=== PATIENT | male | born 1945 | race Caucasian/White ===

== ENCOUNTER 2021-05-07 08:42 | Inpatient (IN) | payer MEDICARE, MEDICAID ==
[2021-05-07] VITALS (43 sets, daily range): BP systolic 67–152; BP diastolic 33–101
[~2021-05-07] VITALS: Ht 167.6 cm; Wt 7.5 kg
[2021-05-07] MEDS ORDERED: ONDANSETRON HCL 4MG/2ML INJ IV PRN (09:30)
[2021-05-07] MEDS ORDERED: ACETAMINOPHEN 325MG TABLET PO PRN (09:30)
[2021-05-07 09:41] LABS: BASOPHILS % 0.3 % (0.0-2.0); EOSINOPHILS % 2.1 % (0.0-5.0); HEMATOCRIT. 42.8 % (42.0-52.0); HEMOGLOBIN. 14.6 g/dL (14.0-18.0); MEAN CORPUSCULAR HEMOGLOBIN 31.9 pg (28.0-32.0); MEAN CORPUSCULAR VOLUME 93.5 fL (80.0-94.0); MONOCYTES % 7.3 % (2.0-8.0); NEUTROPHILS % 72.3 % (40.0-76.0); RED BLOOD CELL COUNT 4.58 mill/uL (4.7-6.1); RED CELL DISTRIBUTION WIDTH 13.1 % (11.6-14.6)
[2021-05-07 09:45] LABS: CHLORIDE 110 mEq/L (98-107)
[2021-05-07 10:12] LABS: MEAN PLATELET VOLUME 11.7 fl (7.4-10.4); PLATELET 135 x1000/uL (130-400)
[2021-05-07] MEDS ORDERED: LIDOCAINE HCL 1% 10 MG/ML 10ML VIAL ONE ×3 (10:36→12:11)
[2021-05-07] MEDS ORDERED: IODIXANOL 320MG/ML 100 ML BOTTLE IV ONE (10:36)
[2021-05-07] MEDS ORDERED: VERAPAMIL HCL 2.5 MG/1 ML 2ML VIAL IV ONE (10:36)
[2021-05-07] MEDS ORDERED: MIDAZOLAM HCL 2 MG/2 ML VIAL ONE ×3 (10:55→13:13)
[2021-05-07] MEDS ORDERED: FENTANYL CITRATE/PF 50MCG/ML 2ML VIAL ONE (10:55)
[2021-05-07] MEDS ORDERED: HEPARIN 1000 UNITS/ML 10ML ONE (11:02)
[2021-05-07] MEDS ORDERED: IOHEXOL-300 100 ML BOTTLE ONE (11:55)
[2021-05-07] MEDS ORDERED: HYDRALAZINE 20MG/ML VIAL ONE (12:17)
[2021-05-07] MEDS ORDERED: NITROGLYCERIN 50MG PREMIX 250 ML IV ONE (12:20)
[2021-05-07] MEDS ORDERED: FUROSEMIDE 40MG/4ML VIAL ONE (12:26)
[2021-05-07] MEDS ORDERED: FENTANYL CITRATE/PF 2,500 MCG in SODIUM CHLORIDE 0.9% 200 ML IV PRN ×2 (12:45→13:00)
[2021-05-07] MEDS ORDERED: MIDAZOLAM HCL 100 MG in SODIUM CHLORIDE 0.9% 80 ML IV PRN ×2 (12:45→13:00)
[2021-05-07] MEDS ORDERED: IPRATROPIUM/ALBUTEROL 0.5-3(2.5)MG/3ML NEB HHN PRN (12:45)
[2021-05-07] MEDS ORDERED: ATROPINE SULFATE 1MG/10ML SYR IV PRN (13:15)
[2021-05-07] MEDS ORDERED: HEPARIN 5000 UNITS/ML VIAL IV SCH ×2 (14:00→16:30)
[2021-05-07] MEDS ORDERED: HEPARIN 5000 UNITS/ML VIAL IV PRN ×2 (14:00)
[2021-05-07 14:40] LABS: BG BASE EXCESS -6.8 mmol/L (-2.0-2.0); BG CARBOXYHEMOGLOBIN 0.4 % (0.5-1.5); BG DEOXYHEMOGLOBIN 2.4 % (0.0-5.0); BG FRACTION INSPIRED OXYGEN 100; BG HCO3 ACT 20.1 mmol/L (22.0-26.0); BG METHEMOGLOBIN 0.6 % (0.0-1.5); BG OXYGEN SATURATION 97.6 % (92.0-98.5); BG OXYHEMOGLOBIN 96.6 % (94.0-97.0); BG PCO2 44.9 mmHg (35.0-45.0); BG PH 7.268 (7.350-7.450); BG PO2 111.8 mmHg (75.0-100.0); BG SAMPLE SITE LEFT BRACHIAL; BG TOTAL HEMOGLOBIN 15.8 g/dL (12.0-18.0); BG VENT MODE VENT - AC
[2021-05-07] MEDS ORDERED: SODIUM BICARBONATE 8.4% 1 MEQ/ML 50ML SYR IV NR (15:00)
[2021-05-07] MEDS ORDERED: SODIUM BICARBONATE 8.4% 1 MEQ/ML 50ML SYR IV ONE (15:03)
[2021-05-07] MEDS ORDERED: NOREPINEPHRINE 32 MG in DEXT 5% WATER 218 ML IV PRN (15:30)
[2021-05-07] MEDS ORDERED: NITROGLYCERIN 50MG PREMIX 250 ML IV PRN (16:15)
[2021-05-07 16:27] LABS: BG BASE EXCESS -3.4 mmol/L (-2.0-2.0); BG CARBOXYHEMOGLOBIN 0.3 % (0.5-1.5); BG DEOXYHEMOGLOBIN 1.9 % (0.0-5.0); BG FRACTION INSPIRED OXYGEN 70; BG HCO3 ACT 20.9 mmol/L (22.0-26.0); BG METHEMOGLOBIN 0.3 % (0.0-1.5); BG OXYGEN SATURATION 98.1 % (92.0-98.5); BG OXYHEMOGLOBIN 97.5 % (94.0-97.0); BG PCO2 35.4 mmHg (35.0-45.0); BG PH 7.389 (7.350-7.450); BG PO2 112.6 mmHg (75.0-100.0); BG TOTAL HEMOGLOBIN 14.6 g/dL (12.0-18.0); BG VENT MODE VENT - AC
[2021-05-07 17:10] LABS: INR 1.1
[2021-05-07] MEDS ORDERED: NITROGLYCERIN 50MG PREMIX 250 ML IV SCH (17:15)
[2021-05-07] MEDS ORDERED: DEXT 5%/0.45% NACL 1000ML 1,000 ML IV SCH (17:30)
[2021-05-07] MEDS: HEPARIN 25,000 UNITS PREMIX 250 ML IV PRN (17:45)
[2021-05-07] MEDS: FUROSEMIDE 40MG/4ML VIAL IVP SCH (19:39)
[2021-05-07 20:09] LABS: CLARITY URINE CLEAR (CLEAR); COLOR URINE YELLOW (YELLOW); KETONES URINE NEGATIVE (NEGATIVE); LEUKOCYTE ESTERASE URINE TRACE (NEGATIVE); NITRITE URINE POSITIVE (NEGATIVE); OCCULT BLOOD URINE 1+ (NEGATIVE); PROTEIN URINE NEGATIVE (NEGATIVE); SPECIFIC GRAVITY URINE 1.023 (1.005-1.030); UROBILINOGEN URINE 0.2 E.U./dL (0.2-1.0)
[2021-05-07] MEDS: IPRATROPIUM/ALBUTEROL 0.5-3(2.5)MG/3ML NEB HHN SCH (21:02)
[2021-05-08] VITALS (99 sets, daily range): BP systolic 71–168; BP diastolic 31–117
[2021-05-08] MEDS: IPRATROPIUM/ALBUTEROL 0.5-3(2.5)MG/3ML NEB HHN SCH ×4 (04:41→18:00)
[2021-05-08 06:57] LABS: BASOPHILS % 0.4 % (0.0-2.0); EOSINOPHILS % 0.8 % (0.0-5.0); HEMATOCRIT. 39.7 % (42.0-52.0); HEMOGLOBIN. 13.4 g/dL (14.0-18.0); LYMPHOCYTES % 15.5 % (20.0-50.0); MEAN CORPUSCULAR HEMOGLOBIN 31.4 pg (28.0-32.0); MEAN CORPUSCULAR VOLUME 93.2 fL (80.0-94.0); MEAN PLATELET VOLUME 11.8 fl (7.4-10.4); MONOCYTES % 7.5 % (2.0-8.0); NEUTROPHILS % 75.8 % (40.0-76.0); PLATELET 99 x1000/uL (130-400); RED BLOOD CELL COUNT 4.26 mill/uL (4.7-6.1); RED CELL DISTRIBUTION WIDTH 13.5 % (11.6-14.6)
[2021-05-08 07:22] LABS: PHOSPHORUS 3.8 mg/dL (2.5-4.9)
[2021-05-08] MEDS ORDERED: LIDOCAINE HCL 1% 10 MG/ML 10ML VIAL ONE (07:39)
[2021-05-08] MEDS: PANTOPRAZOLE SODIUM 40 MG/VIAL IV SCH (08:24)
[2021-05-08] MEDS: FUROSEMIDE 40MG/4ML VIAL IVP SCH (08:24)
[2021-05-08 08:32] LABS: BG CARBOXYHEMOGLOBIN 0.3 % (0.5-1.5); BG DEOXYHEMOGLOBIN 0.9 % (0.0-5.0); BG FRACTION INSPIRED OXYGEN 60; BG HCO3 ACT 21.8 mmol/L (22.0-26.0); BG METHEMOGLOBIN 0.4 % (0.0-1.5); BG OXYGEN SATURATION 99.1 % (92.0-98.5); BG OXYHEMOGLOBIN 98.4 % (94.0-97.0); BG PCO2 42.5 mmHg (35.0-45.0); BG PH 7.328 (7.350-7.450); BG PO2 185.8 mmHg (75.0-100.0); BG SAMPLE SITE LEFT RADIAL; BG TOTAL HEMOGLOBIN 14.2 g/dL (12.0-18.0); BG TOTAL RESPIRATORY RATE 20 b/min; BG VENT MODE VENT - AC
[2021-05-08] MEDS: ASPIRIN 81MG TABLET PO SCH (09:00)
[2021-05-08] MEDS ORDERED: CEFTRIAXONE 1 G PREMIX 50 ML IV SCH (10:00)
[2021-05-08 10:35] LABS: CREATINE KINASE 297 IU/L (39-308)
[2021-05-08] MEDS: SODIUM BICARBONATE 50 MEQ in DEXTROSE 5% WATER 1,000 ML IV SCH ×2 (10:37→22:19)
[2021-05-08] MEDS: CEFTRIAXONE 1,000 MG in DEXTROSE 5% WATER 50 ML IV SCH (10:37)
[2021-05-08 12:44] LABS: BG BASE EXCESS -4.1 mmol/L (-2.0-2.0); BG CARBOXYHEMOGLOBIN 0.4 % (0.5-1.5); BG DEOXYHEMOGLOBIN 3.5 % (0.0-5.0); BG METHEMOGLOBIN 0.2 % (0.0-1.5); BG OXYGEN SATURATION 96.5 % (92.0-98.5); BG OXYHEMOGLOBIN 95.9 % (94.0-97.0); BG PH 7.388 (7.350-7.450); BG PO2 85.9 mmHg (75.0-100.0); BG SAMPLE SITE RIGHT BRACHIAL; BG TOTAL HEMOGLOBIN 14.4 g/dL (12.0-18.0); BG VENT MODE VENT - CPAP
[2021-05-08] MEDS ORDERED: NITROGLYCERIN 50MG PREMIX 250 ML IV PRN (14:15)
[2021-05-08 15:05] LABS: BG BASE EXCESS -4.7 mmol/L (-2.0-2.0); BG CARBOXYHEMOGLOBIN 0.7 % (0.5-1.5); BG DEOXYHEMOGLOBIN 3.2 % (0.0-5.0); BG FRACTION INSPIRED OXYGEN 40; BG METHEMOGLOBIN 0.5 % (0.0-1.5); BG OXYGEN SATURATION 96.8 % (92.0-98.5); BG OXYHEMOGLOBIN 95.6 % (94.0-97.0); BG PCO2 35.8 mmHg (35.0-45.0); BG PH 7.364 (7.350-7.450); BG PO2 88.5 mmHg (75.0-100.0); BG SAMPLE SITE LEFT BRACHIAL; BG TOTAL HEMOGLOBIN 14.3 g/dL (12.0-18.0); BG VENT MODE COOL AEROSOL
[2021-05-08] MEDS: NICARDIPINE 50 MG in SODIUM CHLORIDE 0.9% 230 ML IV PRN (15:16)
[2021-05-08] MEDS ORDERED: SODIUM BICARBONATE 8.4% 1 MEQ/ML 50ML SYR IV NR (15:45)
[2021-05-08] MEDS: HEPARIN 25,000 UNITS PREMIX 250 ML IV PRN (18:24)
[2021-05-09] VITALS (106 sets, daily range): BP systolic 83–142; BP diastolic 33–125
[2021-05-09] MEDS: IPRATROPIUM/ALBUTEROL 0.5-3(2.5)MG/3ML NEB HHN SCH ×5 (00:27→20:48)
[2021-05-09] MEDS: NICARDIPINE 50 MG in SODIUM CHLORIDE 0.9% 230 ML IV PRN ×3 (00:29→19:53)
[2021-05-09 05:50] LABS: BASOPHILS % 0.2 % (0.0-2.0); EOSINOPHILS % 0.7 % (0.0-5.0); HEMATOCRIT. 39.7 % (42.0-52.0); HEMOGLOBIN. 13.5 g/dL (14.0-18.0); LYMPHOCYTES % 9.9 % (20.0-50.0); MEAN CORPUSCULAR HEMOGLOBIN 31.4 pg (28.0-32.0); MEAN CORPUSCULAR VOLUME 92.2 fL (80.0-94.0); MEAN PLATELET VOLUME 10.9 fl (7.4-10.4); MONOCYTES % 8.5 % (2.0-8.0); NEUTROPHILS % 80.7 % (40.0-76.0); PLATELET 64 x1000/uL (130-400); RED BLOOD CELL COUNT 4.31 mill/uL (4.7-6.1); RED CELL DISTRIBUTION WIDTH 13.1 % (11.6-14.6)
[2021-05-09] MEDS: SODIUM BICARBONATE 50 MEQ in DEXTROSE 5% WATER 1,000 ML IV SCH (07:18)
[2021-05-09] MEDS ORDERED: KCL 20MEQ/100ML PREMIX 100 ML IV ONE (08:30)
[2021-05-09] MEDS: PANTOPRAZOLE SODIUM 40 MG/VIAL IV SCH (08:37)
[2021-05-09] MEDS: FUROSEMIDE 40MG/4ML VIAL IVP SCH (08:37)
[2021-05-09] MEDS: DEXT 5%/0.9% NACL 1,000 ML IV SCH (08:38)
[2021-05-09] MEDS: ASPIRIN 81MG TABLET PO SCH (09:25)
[2021-05-09] MEDS ORDERED: GUAIFENESIN 600MG ER TABLET PO NR (09:30)
[2021-05-09] MEDS: CEFTRIAXONE 1,000 MG in DEXTROSE 5% WATER 50 ML IV SCH (10:06)
[2021-05-09 11:19] LABS: PHOSPHORUS 2.8 mg/dL (2.5-4.9)
[2021-05-09] MEDS ORDERED: ACETAMINOPHEN 325MG TABLET PO PRN (12:15)
[2021-05-09] MEDS ORDERED: SODIUM CHLORIDE 0.9% INJ 3ML FLUSH IVF SCH (14:00)
[2021-05-09 16:41] LABS: CLARITY URINE CLEAR (CLEAR); COLOR URINE YELLOW (YELLOW); KETONES URINE NEGATIVE (NEGATIVE); LEUKOCYTE ESTERASE URINE 2+ (NEGATIVE); NITRITE URINE NEGATIVE (NEGATIVE); OCCULT BLOOD URINE 1+ (NEGATIVE); PROTEIN URINE TRACE (NEGATIVE)
[2021-05-09] MEDS: ACETYLCYSTEINE 100MG/ML 10% VIAL 4ML INH SCH (17:17)
[2021-05-09] MEDS: ALLOPURINOL 300 MG TABLET PO SCH (20:07)
[2021-05-09] MEDS ORDERED: ASCORBIC ACID 500 MG TABLET PO SCH (21:00)
[2021-05-09] MEDS ORDERED: CHLORHEXIDINE GLUCONATE 4% EXTERNAL USE TOP SCH (21:00)
[2021-05-09] MEDS ORDERED: BISACODYL 10MG SUPP PR PRN (21:00)
[2021-05-09] MEDS ORDERED: DOCUSATE SODIUM 100MG CAPSULE PO SCH (21:00)
[2021-05-09] MEDS: HEPARIN 25,000 UNITS PREMIX 250 ML IV PRN (21:05)
[2021-05-09] MEDS: GUAIFENESIN 600MG ER TABLET PO SCH (21:06)
[2021-05-10] VITALS (61 sets, daily range): BP systolic 68–140; BP diastolic 20–101
[2021-05-10] MEDS: IPRATROPIUM/ALBUTEROL 0.5-3(2.5)MG/3ML NEB HHN SCH ×4 (00:56→20:28)
[2021-05-10] MEDS: ACETYLCYSTEINE 100MG/ML 10% VIAL 4ML INH SCH ×2 (00:56→16:26)
[2021-05-10] MEDS: NICARDIPINE 50 MG in SODIUM CHLORIDE 0.9% 230 ML IV PRN (02:05)
[2021-05-10 04:22] LABS: HEMATOCRIT. 37.1 % (42.0-52.0); HEMOGLOBIN. 12.7 g/dL (14.0-18.0); MEAN CORPUSCULAR HEMOGLOBIN 31.3 pg (28.0-32.0); MEAN PLATELET VOLUME 11.1 fl (7.4-10.4); PLATELET 62 x1000/uL (130-400); RED BLOOD CELL COUNT 4.07 mill/uL (4.7-6.1); RED CELL DISTRIBUTION WIDTH 12.8 % (11.6-14.6)
[2021-05-10 04:30] LABS: CHLORIDE 105 mEq/L (98-107)
[2021-05-10] MEDS: DEXT 5%/0.9% NACL 1,000 ML IV SCH (04:37)
[2021-05-10] MEDS: ALLOPURINOL 300 MG TABLET PO SCH (04:37)
[2021-05-10 04:40] LABS: PHOSPHORUS 2.8 mg/dL (2.5-4.9)
[2021-05-10] MEDS ORDERED: MAGNESIUM 2 G PREMIX 50 ML IV ONE (05:15)
[2021-05-10] MEDS: CHLORHEXIDINE GLUCONATE 4% EXTERNAL USE TOP SCH (05:20)
[2021-05-10] MEDS ORDERED: MAGNESIUM SULFATE 3 GM in DEXTROSE 5% WATER 100 ML IV NR (05:30)
[2021-05-10] MEDS ORDERED: THROMBIN (BOVINE) 5000 UNITS/VIAL TOP ONE (05:35)
[2021-05-10] MEDS ORDERED: POLYMYXIN B SULFATE 500000 UNITS/VIAL ONE (05:35)
[2021-05-10] MEDS ORDERED: SKIN ADHESIVE 0.7 GM EA TOP ONE (05:35)
[2021-05-10] MEDS ORDERED: HEPARIN 1000 UNITS/ML 10ML ONE ×3 (05:41→09:32)
[2021-05-10] MEDS ORDERED: DOPAMINE 400MG/250ML PREMIX 0 ML IV ONE (05:51)
[2021-05-10] MEDS ORDERED: DEL NIDO ELECTROLYTE-S(PH 7.4) 1,000 ML IV PRN ×2 (06:00)
[2021-05-10] MEDS ORDERED: PAPAVERINE HCL 180MG in SODIUM CHLORIDE 0.9% 24ML IV PRN (06:00)
[2021-05-10] MEDS ORDERED: NOREPINEPHRINE 8 MG in DEXT 5% WATER 242 ML IV PRN ×2 (06:00→15:45)
[2021-05-10] MEDS ORDERED: CEFAZOLIN 2,000 MG in DEXT 5% WATER 100 ML IV PRN (06:00)
[2021-05-10] MEDS ORDERED: DOBUTAMINE 250 MG PREMIX 250 ML IV PRN (06:00)
[2021-05-10] MEDS ORDERED: EPINEPHRINE 5 MG in DEXT 5% WATER 245 ML IV PRN ×2 (06:00→17:00)
[2021-05-10] MEDS ORDERED: INSULIN REGULAR (DRIP) 100 UNITS in SODIUM CHLORIDE 0.9% 99 ML IV PRN (06:00)
[2021-05-10] MEDS ORDERED: DOPAMINE 400MG/250ML PREMIX 250 ML IV PRN (06:00)
[2021-05-10] MEDS ORDERED: AMINOCAPROIC ACID 5,000 MG in SODIUM CHLORIDE 0.9% 230 ML IV PRN (06:00)
[2021-05-10] MEDS ORDERED: NICARDIPINE 40 MG/200 ML PREMIX 200 ML IV PRN (06:00)
[2021-05-10] MEDS ORDERED: ROCURONIUM BROMIDE 10MG/ML VIAL 5ML IV ONE ×2 (07:13→09:35)
[2021-05-10 07:16] LABS: PLATELET ESTIMATE DECREASED
[2021-05-10] MEDS ORDERED: CALCIUM CHLORIDE 1GM/10ML SYR IV ONE ×5 (07:49→13:29)
[2021-05-10] MEDS ORDERED: AMINOCAPROIC ACID 250 MG/ML 20ML VIAL ONE (07:49)
[2021-05-10] MEDS ORDERED: SODIUM BICARBONATE 8.4% 1 MEQ/ML 50ML SYR IV ONE ×5 (08:01→15:47)
[2021-05-10] MEDS ORDERED: ALBUMIN HUMAN 25GM/100ML (25%) IV ONE ×2 (08:01→15:05)
[2021-05-10] MEDS ORDERED: POTASSIUM CHLORIDE 40MEQ/20ML INJ IV ONE (08:01)
[2021-05-10] MEDS ORDERED: PHENYLEPHRINE HCL 10 MG/ML 1ML (IV VIAL) IV ONE (08:01)
[2021-05-10] MEDS ORDERED: MANNITOL 20% (20GM/100ML) BAG 500ML PREMIX IV ONE (08:01)
[2021-05-10] MEDS ORDERED: HEPARIN 10,000 UNITS/ML VIAL ONE (08:01)
[2021-05-10] MEDS ORDERED: MAGNESIUM SULFATE 5GM/10ML VIAL IV ONE (08:01)
[2021-05-10] MEDS ORDERED: HYDROMORPHONE HCL/PF 2MG/ML (OR) ONE (08:13)
[2021-05-10] MEDS ORDERED: BUPIVACAINE HCL/PF 0.5% (5MG/ML) 10ML ONE (08:14)
[2021-05-10] MEDS ORDERED: FUROSEMIDE 100MG/10ML VIAL ONE (08:17)
[2021-05-10] MEDS: FUROSEMIDE 40MG/4ML VIAL IVP SCH (09:00)
[2021-05-10] MEDS: GUAIFENESIN 600MG ER TABLET PO SCH ×2 (09:00→21:00)
[2021-05-10] MEDS: ASPIRIN 81MG TABLET PO SCH (09:00)
[2021-05-10] MEDS: PANTOPRAZOLE SODIUM 40 MG/VIAL IV SCH (09:00)
[2021-05-10] MEDS ORDERED: AMIODARONE HCL 50MG/ML 3ML VIAL IV ONE (09:48)
[2021-05-10] MEDS ORDERED: VASOPRESSIN 20 UNIT/ML 1ML ONE (09:57)
[2021-05-10] MEDS ORDERED: AMIODARONE HCL 900 MG in DEXT 5% WATER 500 ML IV SCH (10:00)
[2021-05-10] MEDS: CEFTRIAXONE 1,000 MG in DEXTROSE 5% WATER 50 ML IV SCH (10:09)
[2021-05-10] MEDS ORDERED: PROTAMINE SULFATE 10MG/ML VIAL 25ML IV ONE (12:05)
[2021-05-10] MEDS ORDERED: PROPOFOL 10MG/ML 100ML 100 ML IV ONE (13:04)
[2021-05-10] MEDS ORDERED: EPINEPHRINE 0.1MG/ML (1:10,000) 10ML SYR ONE (13:41)
[2021-05-10] MEDS ORDERED: KCL 10MEQ/50ML PREMIX 100 ML IV PRN (13:45)
[2021-05-10] MEDS ORDERED: KCL 10MEQ/50ML PREMIX 150 ML IV PRN (13:45)
[2021-05-10] MEDS ORDERED: DEXTROSE 50% WATER 50ML SYRINGE IV PRN ×2 (13:45)
[2021-05-10] MEDS ORDERED: KCL 10MEQ/50ML PREMIX 200 ML IV PRN (13:45)
[2021-05-10] MEDS ORDERED: EPINEPHRINE 10 MG in SODIUM CHLORIDE 0.9% 250 ML IV PRN (14:30)
[2021-05-10] MEDS ORDERED: EPINEPHRINE 10 MG in SODIUM CHLORIDE 0.9% 250 ML IV NR (14:30)
[2021-05-10 14:44] LABS: HEMATOCRIT. 27.3 % (42.0-52.0); HEMOGLOBIN. 9.1 g/dL (14.0-18.0); MEAN CORPUSCULAR HEMOGLOBIN 31.5 pg (28.0-32.0); MEAN CORPUSCULAR VOLUME 94.4 fL (80.0-94.0); MEAN PLATELET VOLUME 9.6 fl (7.4-10.4); PLATELET 112 x1000/uL (130-400); RED BLOOD CELL COUNT 2.89 mill/uL (4.7-6.1); RED CELL DISTRIBUTION WIDTH 13.1 % (11.6-14.6)
[2021-05-10 14:50] LABS: CHLORIDE 106 mEq/L (98-107)
[2021-05-10] MEDS ORDERED: INSULIN REGULAR (DRIP) 100 UNITS in SODIUM CHLORIDE 0.9% 100 ML IV SCH (15:00)
[2021-05-10 15:31] LABS: BG BASE EXCESS -5.1 mmol/L (-2.0-2.0); BG CARBOXYHEMOGLOBIN 0.3 % (0.5-1.5); BG FRACTION INSPIRED OXYGEN 100; BG HCO3 ACT 22.6 mmol/L (22.0-26.0); BG METHEMOGLOBIN 0.4 % (0.0-1.5); BG OXYHEMOGLOBIN 97.3 % (94.0-97.0); BG PCO2 55.8 mmHg (35.0-45.0); BG PH 7.225 (7.350-7.450); BG PO2 156.1 mmHg (75.0-100.0); BG TOTAL HEMOGLOBIN 9.4 g/dL (12.0-18.0); BG VENT MODE VENT - AC
[2021-05-10] MEDS ORDERED: CALCIUM CHLORIDE 3,000 MG in DEXT 5% WATER 250 ML IV PRN (15:45)
[2021-05-10] MEDS ORDERED: ACETAMINOPHEN 325MG TABLET PO PRN (15:45)
[2021-05-10] MEDS ORDERED: OXYCODONE HCL/ACETAMINOPHEN 5/325MG TABLET PO PRN (15:45)
[2021-05-10] MEDS ORDERED: MAGNESIUM 1 G PREMIX 100 ML IV PRN (15:45)
[2021-05-10] MEDS ORDERED: ONDANSETRON HCL 4MG/2ML INJ IV PRN (15:45)
[2021-05-10] MEDS ORDERED: MAGNESIUM 2 G PREMIX 50 ML IV PRN (15:45)
[2021-05-10] MEDS ORDERED: MAGNESIUM SULFATE 3 GM in DEXT 5% WATER 100 ML IV PRN (15:45)
[2021-05-10] MEDS ORDERED: ALBUMIN HUMAN 12.5G/250ML (5%) IV PRN (15:45)
[2021-05-10] MEDS ORDERED: SODIUM CHLORIDE 0.9% 500 ML IV PRN (15:45)
[2021-05-10] MEDS: BLOOD SUGAR DIAGNOSTIC STRIP TEST SCH ×9 (15:45→23:00)
[2021-05-10] MEDS: DEXT 5%/0.45% NACL 1000ML 1,000 ML IV SCH (15:54)
[2021-05-10] MEDS ORDERED: SODIUM BICARBONATE 8.4% 1 MEQ/ML 50ML SYR IV NR (16:00)
[2021-05-10] MEDS ORDERED: MILRINONE 20MG-DEXT 5% PREMIX 100 ML IV PRN (16:00)
[2021-05-10 16:01] LABS: PLATELET ESTIMATE DECREASED
[2021-05-10] MEDS ORDERED: ALBUMIN HUMAN 12.5G/250ML (5%) IV NR (16:15)
[2021-05-10 16:24] LABS: BG BASE EXCESS -3.5 mmol/L (-2.0-2.0); BG CARBOXYHEMOGLOBIN 0.1 % (0.5-1.5); BG DEOXYHEMOGLOBIN 5.3 % (0.0-5.0); BG FRACTION INSPIRED OXYGEN 80; BG HCO3 ACT 23.3 mmol/L (22.0-26.0); BG METHEMOGLOBIN 0.4 % (0.0-1.5); BG OXYGEN SATURATION 94.7 % (92.0-98.5); BG OXYHEMOGLOBIN 94.2 % (94.0-97.0); BG PH 7.277 (7.350-7.450); BG PO2 87.4 mmHg (75.0-100.0); BG SAMPLE SITE ALINE; BG TOTAL HEMOGLOBIN 8.1 g/dL (12.0-18.0); BG VENT MODE VENT - AC
[2021-05-10 16:28] LABS: INR 1.5; PARTIAL THROMBOPLASTIN TIME 54.1 sec (23.4-31.0)
[2021-05-10] MEDS: DOCUSATE SODIUM 100MG CAPSULE PO SCH ×2 (16:30→21:00)
[2021-05-10] MEDS ORDERED: DEXT 5%/0.45% NACL 1000ML 1,000 ML IV SCH (16:30)
[2021-05-10 16:46] LABS: PHOSPHORUS 6.7 mg/dL (2.5-4.9)
[2021-05-10] MEDS ORDERED: MILRINONE 20MG-DEXT 5% PREMIX 100 ML IV SCH (17:00)
[2021-05-10] MEDS: MAGNESIUM HYDROXIDE 400MG/5ML 30ML UDC PO SCH ×2 (17:00→20:00)
[2021-05-10] MEDS ORDERED: EPINEPHRINE 10 MG in SODIUM CHLORIDE 0.9% 240 ML IV PRN (17:00)
[2021-05-10] MEDS ORDERED: NITROGLYCERIN 50MG PREMIX 250 ML IV SCH (17:00)
[2021-05-10] MEDS ORDERED: NALOXONE HCL 0.4MG/ML VIAL IV PRN (17:00)
[2021-05-10] MEDS: CEFAZOLIN 1000MG PREMIX 50 ML IV SCH (17:07)
[2021-05-10] MEDS ORDERED: ALBUMIN HUMAN 12.5G/250ML (5%) IV ONE (17:30)
[2021-05-10] MEDS ORDERED: ALBUMIN HUMAN 25GM/100ML (25%) IV NR (17:30)
[2021-05-10 17:50] LABS: BG BASE EXCESS -0.6 mmol/L (-2.0-2.0); BG CARBOXYHEMOGLOBIN 0.3 % (0.5-1.5); BG FRACTION INSPIRED OXYGEN 80; BG HCO3 ACT 24.4 mmol/L (22.0-26.0); BG METHEMOGLOBIN 0.6 % (0.0-1.5); BG OXYHEMOGLOBIN 95.1 % (94.0-97.0); BG PCO2 41.7 mmHg (35.0-45.0); BG PH 7.385 (7.350-7.450); BG PO2 93.4 mmHg (75.0-100.0); BG SAMPLE SITE ALINE; BG VENT MODE VENT - AC
[2021-05-10] MEDS ORDERED: CEFAZOLIN 1000MG PREMIX 50 ML IV SCH (18:00)
[2021-05-10] MEDS ORDERED: IPRATROPIUM/ALBUTEROL 0.5-3(2.5)MG/3ML NEB HHN SCH (20:00)
[2021-05-10 20:23] LABS: HEMOGLOBIN. 7.8 g/dL (14.0-18.0); MEAN CORPUSCULAR HEMOGLOBIN 31.5 pg (28.0-32.0); MEAN CORPUSCULAR VOLUME 93.2 fL (80.0-94.0); MEAN PLATELET VOLUME 9.8 fl (7.4-10.4); PLATELET 72 x1000/uL (130-400); RED BLOOD CELL COUNT 2.47 mill/uL (4.7-6.1); RED CELL DISTRIBUTION WIDTH 12.9 % (11.6-14.6)
[2021-05-10 20:33] LABS: PHOSPHORUS 1.9 mg/dL (2.5-4.9)
[2021-05-10 21:03] LABS: PLATELET ESTIMATE DECREASED
[2021-05-10 21:46] LABS: BG BASE EXCESS 3.1 mmol/L (-2.0-2.0); BG CARBOXYHEMOGLOBIN 0.2 % (0.5-1.5); BG DEOXYHEMOGLOBIN 2.5 % (0.0-5.0); BG FRACTION INSPIRED OXYGEN 60; BG HCO3 ACT 26.4 mmol/L (22.0-26.0); BG METHEMOGLOBIN 0.2 % (0.0-1.5); BG OXYGEN SATURATION 97.5 % (92.0-98.5); BG OXYHEMOGLOBIN 97.1 % (94.0-97.0); BG PH 7.495 (7.350-7.450); BG PO2 112.4 mmHg (75.0-100.0); BG SAMPLE SITE ALINE; BG TOTAL HEMOGLOBIN 8.9 g/dL (12.0-18.0); BG VENT MODE VENT - AC
[2021-05-11] VITALS (96 sets, daily range): BP systolic 56–256; BP diastolic 41–255
[2021-05-11] MEDS: ACETYLCYSTEINE 100MG/ML 10% VIAL 4ML INH SCH ×3 (00:40→16:13)
[2021-05-11] MEDS: IPRATROPIUM/ALBUTEROL 0.5-3(2.5)MG/3ML NEB HHN SCH ×6 (00:40→20:25)
[2021-05-11] MEDS: BLOOD SUGAR DIAGNOSTIC STRIP TEST SCH ×24 (01:00→23:00)
[2021-05-11] MEDS: CEFAZOLIN 1000MG PREMIX 50 ML IV SCH ×2 (02:00→10:20)
[2021-05-11] MEDS: MAGNESIUM HYDROXIDE 400MG/5ML 30ML UDC PO SCH ×5 (04:00→19:55)
[2021-05-11 05:10] LABS: HEMATOCRIT. 28.7 % (42.0-52.0); HEMOGLOBIN. 9.7 g/dL (14.0-18.0); MEAN CORPUSCULAR HEMOGLOBIN 31.9 pg (28.0-32.0); MEAN CORPUSCULAR VOLUME 93.9 fL (80.0-94.0); PLATELET 80 x1000/uL (130-400); RED BLOOD CELL COUNT 3.06 mill/uL (4.7-6.1); RED CELL DISTRIBUTION WIDTH 13.2 % (11.6-14.6)
[2021-05-11 05:34] LABS: BG BASE EXCESS 6.1 mmol/L (-2.0-2.0); BG CARBOXYHEMOGLOBIN 0.2 % (0.5-1.5); BG DEOXYHEMOGLOBIN 8.8 % (0.0-5.0); BG FRACTION INSPIRED OXYGEN 45; BG HCO3 ACT 29.5 mmol/L (22.0-26.0); BG METHEMOGLOBIN 1.2 % (0.0-1.5); BG OXYGEN SATURATION 91.1 % (92.0-98.5); BG OXYHEMOGLOBIN 89.8 % (94.0-97.0); BG PCO2 37.9 mmHg (35.0-45.0); BG PH 7.509 (7.350-7.450); BG PO2 59.7 mmHg (75.0-100.0); BG SAMPLE SITE LEFT RADIAL; BG TOTAL HEMOGLOBIN 10.8 g/dL (12.0-18.0); BG VENT MODE VENT - AC
[2021-05-11] MEDS ORDERED: FUROSEMIDE 40MG/4ML VIAL IVP ONE (06:15)
[2021-05-11] MEDS ORDERED: FUROSEMIDE 40MG/4ML VIAL IVP SCH (06:30)
[2021-05-11 08:46] LABS: BG BASE EXCESS 3.5 mmol/L (-2.0-2.0); BG CARBOXYHEMOGLOBIN 0.3 % (0.5-1.5); BG DEOXYHEMOGLOBIN 3.5 % (0.0-5.0); BG FRACTION INSPIRED OXYGEN 45; BG HCO3 ACT 26.3 mmol/L (22.0-26.0); BG METHEMOGLOBIN 0.3 % (0.0-1.5); BG OXYGEN SATURATION 96.5 % (92.0-98.5); BG OXYHEMOGLOBIN 95.9 % (94.0-97.0); BG PCO2 33.2 mmHg (35.0-45.0); BG PH 7.516 (7.350-7.450); BG PO2 94.1 mmHg (75.0-100.0); BG SAMPLE SITE RIGHT RADIAL; BG TOTAL HEMOGLOBIN 10.7 g/dL (12.0-18.0); BG VENT MODE VENT - AC/VC
[2021-05-11] MEDS: GUAIFENESIN 600MG ER TABLET PO SCH ×2 (09:00→20:00)
[2021-05-11] MEDS: CHLORHEXIDINE GLUCONATE 4% EXTERNAL USE TOP SCH (09:00)
[2021-05-11] MEDS: DOCUSATE SODIUM 100MG CAPSULE PO SCH ×2 (09:00→17:00)
[2021-05-11] MEDS: FAMOTIDINE 20MG/2ML VIAL IV SCH (09:31)
[2021-05-11] MEDS: FUROSEMIDE 40MG/4ML VIAL IVP SCH (09:32)
[2021-05-11] MEDS ORDERED: SODIUM POLYSTYRENE SULFONATE 15 G/60 ML BOT PO NR (10:00)
[2021-05-11] MEDS: CEFTRIAXONE 1,000 MG in DEXTROSE 5% WATER 50 ML IV SCH (10:20)
[2021-05-11] MEDS: ASPIRIN 81MG TABLET PO SCH (10:50)
[2021-05-11 11:55] LABS: PLATELET ESTIMATE DECREASED
[2021-05-11 12:05] LABS: BG CARBOXYHEMOGLOBIN 0.3 % (0.5-1.5); BG DEOXYHEMOGLOBIN 3.6 % (0.0-5.0); BG FRACTION INSPIRED OXYGEN 40; BG HCO3 ACT 30.5 mmol/L (22.0-26.0); BG METHEMOGLOBIN 0.4 % (0.0-1.5); BG OXYGEN SATURATION 96.4 % (92.0-98.5); BG OXYHEMOGLOBIN 95.7 % (94.0-97.0); BG PCO2 38.8 mmHg (35.0-45.0); BG PH 7.513 (7.350-7.450); BG PO2 88.6 mmHg (75.0-100.0); BG SAMPLE SITE RIGHT BRACHIAL; BG VENT MODE VENT - CPAP/PS
[2021-05-11] MEDS: MORPHINE SULFATE 2 MG/ML CPJ (NOT FOR IM USE) IV PRN (14:03)
[2021-05-11 14:09] LABS: HEMATOCRIT. 30.4 % (42.0-52.0); HEMOGLOBIN. 10.3 g/dL (14.0-18.0); MEAN CORPUSCULAR HEMOGLOBIN 31.8 pg (28.0-32.0); MEAN CORPUSCULAR VOLUME 94.1 fL (80.0-94.0); MEAN PLATELET VOLUME 10.7 fl (7.4-10.4); PLATELET 78 x1000/uL (130-400); RED BLOOD CELL COUNT 3.23 mill/uL (4.7-6.1); RED CELL DISTRIBUTION WIDTH 13.4 % (11.6-14.6)
[2021-05-11 14:27] LABS: PLATELET ESTIMATE DECREASED
[2021-05-11] MEDS: DEXT 5%/0.45% NACL 1000ML 1,000 ML IV SCH (15:11)
[2021-05-11] MEDS ORDERED: NICARDIPINE 50 MG in SODIUM CHLORIDE 0.9% 230 ML IV PRN (15:45)
[2021-05-11 17:30] LABS: BG CARBOXYHEMOGLOBIN 0.3 % (0.5-1.5); BG DEOXYHEMOGLOBIN 6.5 % (0.0-5.0); BG HCO3 ACT 24.1 mmol/L (22.0-26.0); BG METHEMOGLOBIN 0.4 % (0.0-1.5); BG OXYGEN SATURATION 93.5 % (92.0-98.5); BG OXYHEMOGLOBIN 92.8 % (94.0-97.0); BG PCO2 29.7 mmHg (35.0-45.0); BG PH 7.528 (7.350-7.450); BG SAMPLE SITE LEFT BRACHIAL; BG TOTAL HEMOGLOBIN 11.2 g/dL (12.0-18.0); BG VENT MODE COOL AEROSOL
[2021-05-11] MEDS ORDERED: ALBUMIN HUMAN 12.5G/250ML (5%) IV NR ×2 (20:00→22:45)
[2021-05-11 20:56] LABS: BG BASE EXCESS 1.2 mmol/L (-2.0-2.0); BG CARBOXYHEMOGLOBIN 0.2 % (0.5-1.5); BG DEOXYHEMOGLOBIN 3.3 % (0.0-5.0); BG FRACTION INSPIRED OXYGEN 40; BG HCO3 ACT 24.1 mmol/L (22.0-26.0); BG METHEMOGLOBIN 0.3 % (0.0-1.5); BG OXYGEN SATURATION 96.7 % (92.0-98.5); BG OXYHEMOGLOBIN 96.2 % (94.0-97.0); BG PCO2 32.4 mmHg (35.0-45.0); BG PO2 97.2 mmHg (75.0-100.0); BG SAMPLE SITE RIGHT RADIAL; BG TOTAL HEMOGLOBIN 10.2 g/dL (12.0-18.0); BG VENT MODE MASK - BIPAP
[2021-05-12] VITALS (67 sets, daily range): BP systolic 67–149; BP diastolic 17–106
[2021-05-12] MEDS: IPRATROPIUM/ALBUTEROL 0.5-3(2.5)MG/3ML NEB HHN SCH ×5 (00:38→15:28)
[2021-05-12] MEDS: ACETYLCYSTEINE 100MG/ML 10% VIAL 4ML INH SCH ×3 (00:38→15:27)
[2021-05-12] MEDS: BLOOD SUGAR DIAGNOSTIC STRIP TEST SCH ×16 (01:00→15:19)
[2021-05-12] MEDS: MAGNESIUM HYDROXIDE 400MG/5ML 30ML UDC PO SCH ×4 (03:21→12:00)
[2021-05-12] MEDS: MORPHINE SULFATE 2 MG/ML CPJ (NOT FOR IM USE) IV PRN (04:18)
[2021-05-12 05:57] LABS: HEMATOCRIT. 28.4 % (42.0-52.0); HEMOGLOBIN. 9.4 g/dL (14.0-18.0); MEAN CORPUSCULAR HEMOGLOBIN 31.3 pg (28.0-32.0); MEAN CORPUSCULAR VOLUME 95.1 fL (80.0-94.0); MEAN PLATELET VOLUME 11.7 fl (7.4-10.4); PLATELET 81 x1000/uL (130-400); RED BLOOD CELL COUNT 2.99 mill/uL (4.7-6.1); RED CELL DISTRIBUTION WIDTH 13.4 % (11.6-14.6)
[2021-05-12 06:26] LABS: PHOSPHORUS 5.8 mg/dL (2.5-4.9)
[2021-05-12] MEDS: DEXT 5%/0.45% NACL 1000ML 1,000 ML IV SCH (08:00)
[2021-05-12 08:47] LABS: BG CARBOXYHEMOGLOBIN 0.3 % (0.5-1.5); BG DEOXYHEMOGLOBIN 2.4 % (0.0-5.0); BG METHEMOGLOBIN 0.5 % (0.0-1.5); BG OXYGEN SATURATION 97.6 % (92.0-98.5); BG OXYHEMOGLOBIN 96.8 % (94.0-97.0); BG PCO2 39.1 mmHg (35.0-45.0); BG PH 7.457 (7.350-7.450); BG PO2 110.2 mmHg (75.0-100.0); BG TOTAL HEMOGLOBIN 10.4 g/dL (12.0-18.0)
[2021-05-12] MEDS: ASPIRIN 81MG TABLET PO SCH (09:00)
[2021-05-12] MEDS: DOCUSATE SODIUM 100MG CAPSULE PO SCH (09:00)
[2021-05-12] MEDS: GUAIFENESIN 600MG ER TABLET PO SCH (09:00)
[2021-05-12] MEDS ORDERED: LIDOCAINE HCL 1% 10 MG/ML 10ML VIAL ONE (09:39)
[2021-05-12 09:44] LABS: BG SAMPLE SITE RIGHT RADIAL
[2021-05-12 09:45] LABS: BG FRACTION INSPIRED OXYGEN 40; BG VENT MODE BIPAP MASK; BG VENT RATE 14 set
[2021-05-12 09:46] LABS: BG BILEVEL POS AIRWAY PRESSURE 15/5; BG TOTAL RESPIRATORY RATE 14 b/min
[2021-05-12] MEDS: FAMOTIDINE 20MG/2ML VIAL IV SCH (10:21)
[2021-05-12] MEDS: FUROSEMIDE 40MG/4ML VIAL IVP SCH (10:22)
[2021-05-12 10:42] LABS: CHLORIDE 112 mEq/L (98-107)
[2021-05-12] MEDS ORDERED: CEFEPIME 1,000 MG in DEXTROSE 5% WATER 50 ML IV SCH (10:45)
[2021-05-12 10:46] LABS: AMYLASE 402 IU/L (25-115)
[2021-05-12] MEDS ORDERED: CEFEPIME 500 MG in DEXTROSE 5% WATER 50 ML IV SCH (12:00)
[2021-05-12 12:14] LABS: HEPATITIS B SURFACE ANTIGEN NEGATIVE
[2021-05-12] MEDS ORDERED: DEXTROSE 50% WATER 50ML SYRINGE IV ONE (12:45)
[2021-05-12] MEDS ORDERED: MAGNESIUM SULFATE 4G IN WATER 100ML PREMIX IV ONE (12:45)
[2021-05-12] MEDS ORDERED: EPINEPHRINE 0.1MG/ML (1:10,000) 10ML SYR ONE (12:45)
[2021-05-12] MEDS ORDERED: CALCIUM CHLORIDE 1GM/10ML SYR IV ONE (12:45)
[2021-05-12] MEDS ORDERED: SODIUM BICARBONATE 8.4% 1 MEQ/ML 50ML SYR IV ONE ×2 (12:45→16:36)
[2021-05-12] MEDS ORDERED: ATROPINE SULFATE 1MG/10ML SYR ONE (12:45)
[2021-05-12] MEDS ORDERED: CEFEPIME 1,000 MG in DEXTROSE 5% WATER 50 ML IV NR (14:00)
[2021-05-12 14:35] LABS: PLATELET ESTIMATE DECREASED
[2021-05-13] MEDS ORDERED: CEFEPIME 500 MG in DEXTROSE 5% WATER 50 ML IV SCH (14:00)
== END 2021-05-12 20:40 | DRG 233 ==
LOC: ER 08:42 → ORIP 09:41 → CVICU 12:48
PROVIDERS: ADMIT Internal Medicine; ATTEND Internal Medicine
PROC: 5A02210 Assistance with Cardiac Output using Balloon Pump, Continuous (ICD-10-PCS; principal; 2021-05-07)
PROC: 4A023N7 Measurement of Cardiac Sampling and Pressure, Left Heart, Percutaneous Approach (ICD-10-PCS; 2021-05-07)
PROC: 0BH17EZ Insertion of Endotracheal Airway into Trachea, Via Natural or Artificial Opening (ICD-10-PCS; 2021-05-07)
PROC: B211YZZ Fluoroscopy of Multiple Coronary Arteries using Other Contrast (ICD-10-PCS; 2021-05-07)
PROC: 5A1223Z Performance of Cardiac Pacing, Continuous (ICD-10-PCS; 2021-05-07)
PROC: B41FYZZ Fluoroscopy of Right Lower Extremity Arteries using Other Contrast (ICD-10-PCS; 2021-05-07)
PROC: 5A1945Z Respiratory Ventilation, 24-96 Consecutive Hours (ICD-10-PCS; 2021-05-07)
PROC: 02HV33Z Insertion of Infusion Device into Superior Vena Cava, Percutaneous Approach (ICD-10-PCS; 2021-05-08)
PROC: B548ZZA Ultrasonography of Superior Vena Cava, Guidance (ICD-10-PCS; 2021-05-08)
PROC: 5A09357 Assistance with Respiratory Ventilation, Less than 24 Consecutive Hours, Continuous Positive Airway Pressure (ICD-10-PCS; 2021-05-09)
PROC: 02100Z9 Bypass Coronary Artery, One Artery from Left Internal Mammary, Open Approach (ICD-10-PCS; 2021-05-10)
PROC: 021209W Bypass Coronary Artery, Three Arteries from Aorta with Autologous Venous Tissue, Open Approach (ICD-10-PCS; 2021-05-10)
PROC: 06BQ4ZZ Excision of Left Saphenous Vein, Percutaneous Endoscopic Approach (ICD-10-PCS; 2021-05-10)
PROC: 04QK0ZZ Repair Right Femoral Artery, Open Approach (ICD-10-PCS; 2021-05-10)
PROC: 5A1221Z Performance of Cardiac Output, Continuous (ICD-10-PCS; 2021-05-10)
PROC: B24BZZ4 Ultrasonography of Heart with Aorta, Transesophageal (ICD-10-PCS; 2021-05-10)
PROC: 0W9B30Z Drainage of Left Pleural Cavity with Drainage Device, Percutaneous Approach (ICD-10-PCS; 2021-05-10)
PROC: 0HB5XZZ Excision of Chest Skin, External Approach (ICD-10-PCS; 2021-05-10)
PROC: 30233R1 Transfusion of Nonautologous Platelets into Peripheral Vein, Percutaneous Approach (ICD-10-PCS; 2021-05-10)
PROC: 5A09357 Assistance with Respiratory Ventilation, Less than 24 Consecutive Hours, Continuous Positive Airway Pressure (ICD-10-PCS; 2021-05-11)
PROC: 5A12012 Performance of Cardiac Output, Single, Manual (ICD-10-PCS; 2021-05-12)
PROC: B54BZZA Ultrasonography of Right Lower Extremity Veins, Guidance (ICD-10-PCS; 2021-05-12)
PROC: 06HY33Z Insertion of Infusion Device into Lower Vein, Percutaneous Approach (ICD-10-PCS; 2021-05-12)
PROC: 0BH17EZ Insertion of Endotracheal Airway into Trachea, Via Natural or Artificial Opening (ICD-10-PCS; 2021-05-12)
PROC: 5A09357 Assistance with Respiratory Ventilation, Less than 24 Consecutive Hours, Continuous Positive Airway Pressure (ICD-10-PCS; 2021-05-12)
PROC: 5A1935Z Respiratory Ventilation, Less than 24 Consecutive Hours (ICD-10-PCS; 2021-05-12)
PROC: 5A1D70Z Performance of Urinary Filtration, Intermittent, Less than 6 Hours Per Day (ICD-10-PCS; 2021-05-12)
DX: I21.4 Non-ST elevation (NSTEMI) myocardial infarction (principal); J96.01 Acute respiratory failure with hypoxia; I50.23 Acute on chronic systolic (congestive) heart failure; N17.0 Acute kidney failure with tubular necrosis; J18.9 Pneumonia, unspecified organism; I13.0 Hypertensive heart and chronic kidney disease with heart failure and stage 1 through stage 4 chronic kidney disease, or unspecified chronic kidney disease; I44.2 Atrioventricular block, complete; N39.0 Urinary tract infection, site not specified; G93.40 Encephalopathy, unspecified; E78.5 Hyperlipidemia, unspecified; E87.8 Other disorders of electrolyte and fluid balance, not elsewhere classified; I25.10 Atherosclerotic heart disease of native coronary artery without angina pectoris; I27.20 Pulmonary hypertension, unspecified; N18.2 Chronic kidney disease, stage 2 (mild); D69.6 Thrombocytopenia, unspecified; E11.22 Type 2 diabetes mellitus with diabetic chronic kidney disease; E83.39 Other disorders of phosphorus metabolism; E87.5 Hyperkalemia; L98.9 Disorder of the skin and subcutaneous tissue, unspecified; N40.0 Benign prostatic hyperplasia without lower urinary tract symptoms; E78.00 Pure hypercholesterolemia, unspecified; Z20.822 Contact with and (suspected) exposure to COVID-19; I25.5 Ischemic cardiomyopathy; Z87.891 Personal history of nicotine dependence; Z90.49 Acquired absence of other specified parts of digestive tract
CPT/HCPCS: 31500; 33967; 36415; 36556; 36600; 71045; 71250; 76770; 76937; 80048; 80053; 80076; 81003; 82140; 82150; 82248; 82375; 82550; 82805; 82962; 83036; 83735; 83880; 84100; 84484; 85025; 85347; 85384; 86705; 86709; 86803; 86850; 86900; 86920; 86945; 87070; 87340; 87426; 88305; 92953; 93005; 93306; 93458; 93880; 93970; 94002; 94003; 94640; 94660; 99285; A6261; C1725; C1729; C1751; C1752; C1758; C1760; C1769; C1887; C1893; C1894; C9113; J0282; J0360; J0461; J0690; J0692; J0696; J1170; J1265; J1644; J1815; J1940; J2250; J2260; J2270; J2370; J2704; J2720; J3010; J3475; J3480; J3490; J7040; J7042; J7050; J7060; J7070; J7608; L1830; L3908; P9016; P9034; P9041; P9047; Q9967; A4315; P9036